=== PATIENT | female | born 1960 | race Caucasian/White ===

== ENCOUNTER 2017-09-09 19:26 | Emergency (ER) | payer OTHER ==
[2017-09-09 19:37] VITALS: TEMP 98.3; BMI 40.7
[2017-09-09 19:53] VITALS: BP 140/92
--- NOTE | 2017-09-09 19:56 | PDOC ---
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 The patient reports she was cooking dinner when she tried to cut through frozen burger, the knife went through her R. Hand. The patient reports numbness to the right pinky but states she can feel the doctor touching her finger. The wound is bleeding and wrapped in a towel. Denies any weakness or loss of sensation. Denies fever, chills, cough or headache. Denies nausea or vomiting. Denies any vertigo or discoloration to the hand. Allergies: Seafood and All statins. Social history: None reported. Surgical history Hysterectomy PCP: Leroy Sharma MD <Deneen Fisher - Last Filed: 09/09/17 20:09> <Edwige Caban - Last Filed: 09/10/17 03:11> - General Chief Complaint: Injury Stated Complaint: RT ARM LAC Time Seen by Provider: 09/09/17 19:29 Past History <Deneen Fisher - Last Filed: 09/09/17 20:09> - Past Medical History COPD: No Diabetes: Yes HTN: Yes Hypercholesterolemia: Yes Thyroid Disease: Yes - Suicide/Smoking/Psychosocial Hx Smoking History: Never smoked Have you smoked in the past 12 months: No If you are a former smoker, when did you quit?: 2008 Hx Alcohol Use: No Drug/Substance Use Hx: No Substance Use Type: None <Edwige Caban - Last Filed: 09/10/17 03:11> - Past Medical History Allergies/Adverse Reactions: Allergies Allergy/AdvReac Type Severity Reaction Status Date / Time Fish Containing Products Allergy Verified 09/09/17 21:38 Sea Food Allergy Severe Dyspnea, Uncoded 07/02/15 20:48 Throat tightness All statin AdvReac Severe Myalgias Uncoded 07/02/15 20:48 Home Medications: Ambulatory Orders Aspirin/Calcium Carbonate/Mag [Aspirin Non Irrit 325 Mg Tab] 325 mg PO DAILY tablet 06/23/12 Insulin Glargine,Hum.rec.anlog [Lantus Solostar PEN (NF)] 20 units SQ HS Cephalexin Monohydrate [Keflex -] 500 mg PO Q8H #21 capsule 09/09/17 Review of Systems - Review of Systems Comments:: 09/09/17 20:09 MUSKULOSKELETAL: (+) Right hand injury w/ bleeding. (+) Mild numbness to the right pinky. Absent: back pain, no arthralgia, no myalgia <Deneen Fisher - Last Filed: 09/09/17 20:09> *Physical Exam - Vital Signs Last Vital Signs Temp Pulse Resp BP Pulse Ox 98.3 F 105 H 16 140/92 98 09/09/17 19:29 09/09/17 19:29 09/09/17 19:29 09/09/17 19:53 09/09/17 19:29 - Physical Exam Comments: 09/09/17 20:09 EXTREMITIES: (+) 3.5 cm full thickness flap type laceration of the mid palmar aspect of the right hand. Motor function intact, fingers light touch sensation is decreased in the 5th finger palmar aspect. No other injury noted. no edema. No clubbing or cyanosis. No cords. <Deneen Fisher - Last Filed: 09/09/17 20:09> - Vital Signs Last Vital Signs Temp Pulse Resp BP Pulse Ox 98.3 F 105 H 16 140/92 98 09/09/17 19:29 09/09/17 19:29 09/09/17 19:29 09/09/17 19:53 09/09/17 19:29 <Edwige Caban - Last Filed: 09/10/17 03:11> Medical Decision Making - Medical Decision Making Documentation has been prepared under my direction and personally reviewed by me in its entirety. I attest that this documented accurately reflects all work, treatment, procedures and medical decision making performed by me. As noted above, this 57-year-old woman presents with a history of right hand laceration sustained with a sharp kitchen knife while patient was cooking in her home just prior to presentation. Exam as noted. Because of patient's history of diabetes and complaint of numbness in her fifth finger, plastic surgery repair is warranted. Dr. Louie Fishman consulted and repair of wound performed by him. Patient will be discharged after treatment with Keflex 500 mg by mouth and prescription for Keflex 500 mg 3 times a day for one week sent to her pharmacy. She should follow-up with Dr. Fishman in one week. As per Dr. Fishman., area should be kept as dry as possible until follow-up appointment. <Edwige Caban - Last Filed: 09/10/17 03:11> *DC/Admit/Observation/Transfer <PhillipDeneen - Last Filed: 09/09/17 20:09> <ArshEdwige Cazares - Last Filed: 09/10/17 03:11> Diagnosis at time of Disposition: Laceration of right hand Qualifiers: Encounter type: initial encounter Foreign body presence: without foreign body Qualified Code(s): S61.411A - Laceration without foreign body of right hand, initial encounter - Discharge Dispostion Disposition: HOME Condition at time of disposition: Stable - Prescriptions Prescriptions: Cephalexin Monohydrate [Keflex -] 500 mg PO Q8H #21 capsule - Referrals Referrals: Louie Fishman MD [Staff Physician] - 1 week - Patient Instructions Printed Discharge Instructions: How to Care for a Laceration After Repair Additional Instructions: Elevate right hand is much as possible over the next 2 days Keep wound as dry as possible Keflex 500 mg every 8 hours for one week Follow-up with Dr. Fishman in [address] Fishman earlier or return to ER if wound becomes red/swollen/more painful
[2017-09-09] MEDS ORDERED: DIPHTH,PERTUSS(ACELL),TET 0.5 ML DISP.SYRIN IM ONE (19:57)
[2017-09-09 20:59] VITALS: PULSE 9
[2017-09-09] MEDS ORDERED: LIDOCAINE HCL 2% (20ML MULTI-DOSE VIAL) NR ONE (21:00)
[2017-09-09] MEDS ORDERED: CEPHALEXIN MONOHYDRATE 500 MG CAPSULE (UD) ONE (21:39)
[2017-09-09] MEDS ORDERED: CEPHALEXIN MONOHYDRATE 500 MG CAPSULE (UD) PO ONE (21:45)
--- NOTE | 2017-09-09 22:39 | OP ---
DATE OF OPERATION: 09/09/2017 TITLE OF PROCEDURE: 1. Right hand hypothenar eminence complex 4-cm flap laceration washout and repair. 2. Intrinsic muscle repair of right hand. ATTENDING SURGEON: Louie Fishman M.D. PHYSICIAN: Edwige Caban M.D. HISTORY: This is a 57-year-old female who suffered a self-inflicted knife injury while cooking to her non-dominant right hand, brought into the [facility] emergency room for evaluation and treatment. PAST MEDICAL AND SURGICAL HISTORY: Noncontributory. REVIEW OF SYSTEMS: Negative for any bleeding, coagulopathy, recent fevers or infections, any change in mental status. PHYSICAL EXAMINATION: Head/Neck: Atraumatic. Neck: Supple and nontender. Extremities: Warm and well perfused. There is a distally based, triangular flap laceration with devitalized edges on the hypothenar aspect of the right hand. On digital exam, the patient has normal sensation to each of the ulnar and radial border of the small finger, and the radial border of the ring finger. Patient has normal independent flexion of the FDP and FDS to the small finger. Patient is counseled on risks, benefits, and alternatives to exploration, washout, and repair, understands and agrees to proceed. DESCRIPTION OF PROCEDURE: The margin area was injected with a total of 5 mL of 2% lidocaine plain, after which it was copiously irrigated with normal saline, prepped and draped in standard surgical fashion. Exploration shows a laceration of the hypothenar musculature; however, no extension into the tendon sheath or visualization of neurovascular bundles. The wound was copiously irrigated with normal saline, after which the hypothenar musculature is repaired with a [id number] 4-0 Vicryl suture. The skin is debrided of its devitalized edges. The triangular flap is then inset into its defect with a series of interrupted buried deep dermal 4-0 Vicryl suture. Skin is then loosely approximated with a series of interrupted 5-0 nylon suture, leaving areas for drainage as needed. The wound was dressed with bacitracin, 4x4, gauze, Xeroform, and Kerlix Siddhartha. Instructions given for hand elevation. Oral Keflex is prescribed. Follow up with Dr. Fishman in 1 week or sooner Tom Martinez/[id number] cc: Edwige Caban M.D.
== END 2017-09-09 21:56 | disposition home or self-care (01) ==
LOC: FER 19:26
PROC: 3E0234Z Introduction of Serum, Toxoid and Vaccine into Muscle, Percutaneous Approach (ICD-10-PCS; principal; 2017-09-09)
PROC: 0HQFXZZ Repair Right Hand Skin, External Approach (ICD-10-PCS; 2017-09-09)
DX: S61.411A Laceration without foreign body of right hand, initial encounter (principal); W26.0XXA Contact with knife, initial encounter; Y93.G1 Activity, food preparation and clean up; Y92.9 Unspecified place or not applicable; Z87.891 Personal history of nicotine dependence; I10 Essential (primary) hypertension; E78.00 Pure hypercholesterolemia, unspecified; E07.9 Disorder of thyroid, unspecified; E11.9 Type 2 diabetes mellitus without complications
CPT/HCPCS: 90715; 99282-25